=== PATIENT | male | born 1980 | race Caucasian/White ===

== ENCOUNTER 2017-12-01 16:59 | Emergency (ER) | payer BC ==
--- NOTE | 2017-12-01 17:26 | EDM.PDOC ---
ED HPI GENERAL MEDICAL PROBLEM - General Chief Complaint: Upper Extremity Injury/Pain Stated Complaint: BILATERAL WRIST PAIN Time Seen by Provider: 12/01/17 17:26 Source of Information: Reports: Patient History Limitations: Reports: No Limitations - History of Present Illness INITIAL COMMENTS - FREE TEXT/NARRATIVE: 37-year-old male, chronic wrist pain due to overuse in duty has been driving a lot over the past several days and has had some shooting pains in his wrists especially on the left side. He has taken as needed tramadol in the past and stopped in to the clinic to see if he could get some, they refused so he came to the emergency room. A [employer] search so she has not had any since April of last year. Onset: Unknown/Unsure Severity: Mild Associated Symptoms: Reports: Other (He has some chronic right knee discomfort as well) - Related Data Allergies Allergy/AdvReac Type Severity Reaction Status Date / Time No Known Allergies Allergy Verified 12/01/17 17:20 Review of Systems - Review of Systems Review Of Systems: See Below Constitutional: Denies: Fever Respiratory: Denies: Shortness of Breath Cardiovascular: Denies: Chest Pain GI/Abdominal: Denies: Abdominal Pain Skin: Denies: Rash Neurological: Reports: Other (A few shooting pains into the fingers but no paresthesias) ED EXAM, GENERAL - Physical Exam Exam: See Below Exam Limited By: No Limitations General Appearance: Alert, No Apparent Distress Respiratory/Chest: No Respiratory Distress Extremities: Other (I could not reproduce symptoms with the Tinel's or Phalen's sign on the wrists, but he did have a shot of pain into the small finger on the left wrist with grasp.) Neurological: Alert, Oriented, No Motor/Sensory Deficits Course - Vital Signs Last Recorded V/S: Last Vital Signs Temp 96.8 F 12/01/17 18:09 Pulse 92 12/01/17 18:09 Resp 16 12/01/17 18:09 BP 141/93 H 12/01/17 18:09 Pulse Ox 93 L 12/01/17 18:09 - Re-Assessments/Exams Free Text/Narrative Re-Assessment/Exam: 12/01/17 17:49 Patient was given 15 tramadol to use 1-2 every 4-6 hours for pain, and [facility] Departure - Departure Time of Disposition: 18:08 Disposition: Home, Self-Care 01 Condition: Good Clinical Impression: Neuropathy - Discharge Information Instructions: Neuropathic Pain Referrals: PCP,None [Primary Care Provider] - Forms: ED Department Discharge Care Plan Goals: Use tramadol as prescribed, along with anti-inflammatories such as ibuprofen. Recheck next week as planned.
== END 2017-12-01 18:11 | disposition home or self-care (01) ==
LOC: JP.ED 16:59
DX: G62.9 Polyneuropathy, unspecified (principal)
CPT/HCPCS: 99283

== ENCOUNTER 2018-02-05 18:31 | Emergency (ER) | payer BC, MEDICAID ==
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
--- NOTE | 2018-02-07 09:04 | CR ---
Wrist Comp Min 3V Bi CLINICAL HISTORY: Bilateral wrist pain FINDINGS: There is no acute fracture or dislocation within the right wrist. Articular surfaces are sm ooth. Impression: Negative
== END 2018-02-05 21:50 | disposition home or self-care (01) ==
LOC: JP.ED 18:31
DX: S02.2XXA Fracture of nasal bones, initial encounter for closed fracture (principal); M25.561 Pain in right knee; G56.03 Carpal tunnel syndrome, bilateral upper limbs; Z79.899 Other long term (current) drug therapy; E78.00 Pure hypercholesterolemia, unspecified; F17.210 Nicotine dependence, cigarettes, uncomplicated; W22.8XXA Striking against or struck by other objects, initial encounter
CPT/HCPCS: 70486; 731102650; 73110-50; 99284

== ENCOUNTER 2018-09-04 09:57 | Emergency (ER) | payer MEDICAID, OTHER ==
[2018-09-04] MEDS ORDERED: Acetaminophen 500 MG Tab PO ONE (10:57)
--- NOTE | 2018-09-04 11:00 | EDM.PDOC ---
ED HPI GENERAL MEDICAL PROBLEM - General Chief Complaint: General Stated Complaint: SHORTNESS OF BREATH/COUGH Time Seen by Provider: 09/04/18 10:45 Source of Information: Reports: Patient, RN History Limitations: Reports: No Limitations - History of Present Illness INITIAL COMMENTS - FREE TEXT/NARRATIVE: 38 yo male here with body aches, intermittent fever, dry cough and mild SOB since this past Wednesday. Did have an influenza test. Has not been seen in a clinic. Onset: Gradual Onset Date: 08/31/18 Duration: Day(s):, Constant Location: Reports: Generalized Quality: Reports: Ache Severity: Moderate Improves with: Reports: Medication, Rest Worsens with: Reports: Movement (activity) Context: Reports: Other (see HPI) Associated Symptoms: Reports: Cough, Fever/Chills, Malaise, Shortness of Breath (mild), Other (body aches). 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 Shoulder tear repaired October 28, 2016. Right knee arthroscopy, 2011 Neurological History: Reports: Concussion Psychiatric History: Reports: Other (See Below) Other Psychiatric History: anger management - Infectious Disease History Infectious Disease History: Reports: Chicken Pox - Past Surgical History Head Surgeries/Procedures: Reports: None HEENT Surgical History: Reports: LASIK Cardiovascular Surgical History: Reports: None GI Surgical History: Reports: Cholecystectomy Neurological Surgical History: Reports: None Musculoskeletal Surgical History: Reports: Arthroscopic Knee, Shoulder Surgery Dermatological Surgical History: Reports: None Social & Family History - Tobacco Use Smoking Status *Q: Current Every Day Smoker Years of Tobacco use: 2 Packs/Tins Daily: 3 Second Hand Smoke Exposure: No - Caffeine Use Caffeine Use: Reports: Coffee, Energy Drinks, Soda, Tea - Alcohol Use Days Per Week of Alcohol Use: 2 Number of Drinks Per Day: 2 Total Drinks Per Week: 4 - Recreational Drug Use Recreational Drug Use: No ED ROS GENERAL - Review of Systems Review Of Systems: See Below Constitutional: Reports: Fever, Chills, Malaise HEENT: Reports: No Symptoms Respiratory: Reports: Shortness of Breath (mild), Cough. Denies: Wheezing, Pleuritic Chest Pain, Sputum, Hemoptysis Cardiovascular: Reports: No Symptoms Endocrine: Reports: No Symptoms GI/Abdominal: Reports: No Symptoms : Reports: No Symptoms Musculoskeletal: Reports: No Symptoms Skin: Reports: No Symptoms Neurological: Reports: No Symptoms ED EXAM, GENERAL - Physical Exam Exam: See Below Exam Limited By: No Limitations General Appearance: Alert, WD/WN, No Apparent Distress Eye Exam: Bilateral Eye: Normal Inspection Ears: Normal External Exam, Normal Canal, Hearing Grossly Normal, Normal TMs Ear Exam: Bilateral Ear: Auricle Normal, Canal Normal, TM normal Nose: Normal Inspection, Normal Mucosa, No Blood Throat/Mouth: Normal Inspection, Normal Lips, Normal Oropharynx, Normal Voice, No Airway Compromise Head: Atraumatic, Normocephalic Neck: Normal Inspection, Supple, Non-Tender Respiratory/Chest: No Respiratory Distress, Lungs Clear, Normal Breath Sounds Cardiovascular: Regular Rate, Rhythm, No Edema GI/Abdominal: Normal Bowel Sounds, Soft, Non-Tender Back Exam: Normal Inspection. No: CVA Tenderness (R), CVA Tenderness (L) Extremities: Normal Inspection, Normal Range of Motion, Non-Tender, No Pedal Edema Neurological: Alert, Oriented, CN II-XII Intact, Normal Cognition, No Motor/ Sensory Deficits Psychiatric: Normal Affect, Normal Mood Skin Exam: Warm, Dry, Intact, Normal Color, No Rash Course - Vital Signs Last Recorded V/S: Last Vital Signs Temp 36.1 C 09/04/18 10:31 Pulse 94 09/04/18 10:31 Resp 16 09/04/18 10:31 BP 143/80 H 09/04/18 10:31 Pulse Ox 95 09/04/18 10:31 - Orders/Labs/Meds Labs: Laboratory Tests 09/04/18 Range/Units 11:33 WBC 6.7 (4.5-11.0) K/uL RBC 4.92 (4.30-5.90) M/uL Hgb 14.6 (12.0-15.0) g/dL Hct 44.0 (40.0-54.0) % MCV 89 (80-98) fL MCH 30 (27-31) pg MCHC 33 (32-36) % Plt Count 201 (150-400) K/uL Neut % (Auto) 58 (36-66) % Lymph % (Auto) 29 (24-44) % [place] % (Auto) 10 H (2-6) % Eos % (Auto) 3 (2-4) % Baso % (Auto) 1 (0-1) % Meds: Medications Discontinued Medications Generic Name Dose Route Start Last Admin Trade Name Freq PRN Reason Stop Dose Admin Acetaminophen 1,000 mg 09/04/18 10:57 09/04/18 11:06 Tylenol Extra Strength PO 09/04/18 10:58 1,000 mg ONETIME ONE Administration Departure - Departure Time of Disposition: 12:10 Disposition: Home, Self-Care 01 Condition: Fair Clinical Impression: Viral respiratory illness - Discharge Information *PRESCRIPTION DRUG MONITORING PROGRAM REVIEWED*: No *COPY OF PRESCRIPTION DRUG MONITORING REPORT IN PATIENT RAKAN: No Instructions: Viral Respiratory Infection Referrals: PCP,None [Primary Care Provider] - Forms: ED Department Discharge Additional Instructions: Ibuprofen and/or acetaminophen for pain or fever control. Rest. Drink lots of fluids. Isolation and frequent hand washing to limit spread. Robitussin per package instructions for cough. Recheck in the clinic as needed.
== END 2018-09-04 12:23 | disposition home or self-care (01) ==
LOC: JP.ED 09:57
DX: J98.9 Respiratory disorder, unspecified (principal); E78.00 Pure hypercholesterolemia, unspecified; F17.210 Nicotine dependence, cigarettes, uncomplicated; Z79.899 Other long term (current) drug therapy
CPT/HCPCS: 36415; 85025; 87804; 99285; A9270

== ENCOUNTER 2019-09-29 20:17 | Emergency (ER) | payer BC, OTHER ==
[2019-09-29] MEDS ORDERED: Dexamethasone 4 MG/ML SDV PO ONE (20:51)
--- NOTE | 2019-09-29 20:54 | EDM.PDOC ---
ED HPI GENERAL MEDICAL PROBLEM - General Chief Complaint: ENT Problem Stated Complaint: EAR ACHE SORE THROAT Time Seen by Provider: 09/29/19 20:47 Source of Information: Reports: Patient, RN Notes Reviewed History Limitations: Reports: No Limitations - History of Present Illness INITIAL COMMENTS - FREE TEXT/NARRATIVE: 39-year-old gentleman presents emergency department with a complaint of sore throat and ear pain, he states been sick for about 24 hours has had fever. No difficulty breathing no nausea or vomiting no chest pain Left Ear Pain Score (Numeric/FACES): 8 - Related Data Allergies Allergy/AdvReac Type Severity Reaction Status Date / Time No Known Allergies Allergy Verified 09/29/19 20:41 Home Meds: Home Meds FLUoxetine [PROzac] 20 mg PO DAILY 02/05/18 [History] Past Medical History Cardiovascular History: Reports: High Cholesterol Musculoskeletal History: Reports: Other (See Below) Other Musculoskeletal History: bilateral writst condition, stress fractures. Shoulder tear repaired October 28, 2016. Right knee arthroscopy, 2011 Neurological History: Reports: Concussion Psychiatric History: Reports: Other (See Below) Other Psychiatric History: anger management - Infectious Disease History Infectious Disease History: Reports: Chicken Pox - Past Surgical History Head Surgeries/Procedures: Reports: None HEENT Surgical History: Reports: LASIK Cardiovascular Surgical History: Reports: None GI Surgical History: Reports: Cholecystectomy Neurological Surgical History: Reports: None Musculoskeletal Surgical History: Reports: Arthroscopic Knee, Shoulder Surgery Dermatological Surgical History: Reports: None Social & Family History - Tobacco Use Smoking Status *Q: Never Smoker Second Hand Smoke Exposure: No - Caffeine Use Caffeine Use: Reports: Energy Drinks - Recreational Drug Use Recreational Drug Use: No ED ROS ENT - Review of Systems Review Of Systems: See Below Constitutional: Reports: Fever HEENT: Reports: Ear Pain, Throat Pain, Throat Swelling Respiratory: Reports: No Symptoms Cardiovascular: Reports: No Symptoms GI/Abdominal: Reports: No Symptoms : Reports: No Symptoms ED EXAM, ENT - Physical Exam Exam: See Below Exam Limited By: No Limitations General Appearance: Alert, WD/WN, No Apparent Distress Ears: Normal External Exam, Normal Canal, Hearing Grossly Normal, Normal TMs Nose: Normal Inspection, Normal Mucousa, No Blood Mouth/Throat: Normal Inspection, Normal Gums, Normal Lips, Normal Oropharynx, Normal Teeth Head: Atraumatic, Normocephalic Neck: Normal Inspection, Other (Arnulfo to palpation left anterior cervical chain) . No: Lymphadenopathy (R), Lymphadenopathy (L) Respiratory/Chest: No Respiratory Distress, Lungs Clear, Normal Breath Sounds, No Accessory Muscle Use, Chest Non-Tender Cardiovascular: Regular Rate, Rhythm, No Murmur GI/Abdominal: Soft, Non-Tender Course - Vital Signs Last Recorded V/S: Last Vital Signs Temp 100.7 F H 09/29/19 20:47 Pulse 107 H 09/29/19 20:47 Resp 16 09/29/19 20:47 BP 129/83 09/29/19 20:47 Pulse Ox 100 09/29/19 20:47 - Orders/Labs/Meds Orders: Active Orders 24 hr Category Date Time Status Penicillin G Benzathine [Bicillin L-A] Med 09/29/19 21:32 Once 1.2 millunits IM ONETIME ONE Meds: Medications Discontinued Medications Generic Name Dose Route Start Last Admin Trade Name Freq PRN Reason Stop Dose Admin Dexamethasone 10 mg 09/29/19 20:51 09/29/19 21:01 Dexamethasone PO 09/29/19 20:52 10 mg ONETIME ONE Administration Departure - Departure Time of Disposition: 21:35 Disposition: Home, Self-Care 01 Condition: Fair Clinical Impression: Streptococcal pharyngitis - Discharge Information Instructions: Sore Throat, Sbal-of-Twye Referrals: PCP,None [Primary Care Provider] - Forms: ED Department Discharge Additional Instructions: Symptomatic care Tylenol and Motrin as needed for pain control, please followup with your primary care provider in 3-5 days if not better, please call return to the emergency department with worsening of symptoms. Sepsis Event Note - Evaluation Sepsis Screening Result: No Definite Risk - Focused Exam Vital Signs: Vital Signs Temp Pulse Resp BP Pulse Ox 09/29/19 20:47 100.7 F H 107 H 16 129/83 100 09/29/19 20:37 100.7 F H 107 H 16 129/83 100 Date Exam was Performed: 09/29/19 Time Exam was Performed: 21:34 - My Orders Last 24 Hours: My Active Orders 09/29/19 21:32 Penicillin G Benzathine [Bicillin L-A] 1.2 millunits IM ONETIME ONE - Assessment/Plan Last 24 Hours: My Active Orders 09/29/19 21:32 Penicillin G Benzathine [Bicillin L-A] 1.2 millunits IM ONETIME ONE Plan: Assessment Acuity = acute Site and laterality = streptococcal pharyngitis Etiology = group A streptococcus Manifestations = none Location of injury = Home Lab values = positive for group A streptococcus Plan Elected to proceed with penicillin G 1,200,000 units IM x1 follow-up primary care 3 to 5 days if not better This note was dictated using [employer] voice recognition software please call with any questions on syntax or grammar.
[2019-09-29] MEDS ORDERED: Penicillin G Benzathine 1,200,000 Units/2 ML Syringe IM ONE (21:32)
== END 2019-09-29 22:12 | disposition home or self-care (01) ==
LOC: JP.ED 20:17
DX: J02.0 Streptococcal pharyngitis (principal); Z90.49 Acquired absence of other specified parts of digestive tract
CPT/HCPCS: 87880; 96372; 99283; J0561; J1100

== ENCOUNTER 2019-12-19 03:13 | Emergency (ER) | payer BC ==
[2019-12-19] MEDS ORDERED: Ketorolac 30 MG/ML SDV IVPUSH ONE (03:18)
[2019-12-19] MEDS ORDERED: Sodium Chloride 0.9% 10 ML Syringe FLUSH PRN (03:18)
[2019-12-19] MEDS ORDERED: Ondansetron 4 MG/2 ML SDV IVPUSH ONE (03:20)
--- NOTE | 2019-12-19 03:23 | EDM.PDOC ---
ED HPI GENERAL MEDICAL PROBLEM - General Stated Complaint: LEFT SIDE PAIN Time Seen by Provider: 12/19/19 03:17 Source of Information: Reports: Patient, RN Notes Reviewed History Limitations: Reports: No Limitations - History of Present Illness INITIAL COMMENTS - FREE TEXT/NARRATIVE: 39-year-old gentleman presents emergency department today complaint of sudden onset of left-sided flank pain came on suddenly this morning at 2:30 AM. He describes the pain is constant unrelenting, he has had some nausea and vomiting does have a history abdominal surgery of gallbladder no history of nephrolithiasis Left Lower Abdominal Pain Score (Numeric/FACES): 5 - Related Data Allergies Allergy/AdvReac Type Severity Reaction Status Date / Time No Known Allergies Allergy Verified 12/19/19 03:55 Home Meds: Home Meds FLUoxetine [PROzac] 20 mg PO DAILY 02/05/18 [History] Ibuprofen 600 mg PO DAILY PRN 12/19/19 [History] Past Medical History Cardiovascular History: Reports: High Cholesterol Musculoskeletal History: Reports: Other (See Below) Other Musculoskeletal History: bilateral writst condition, stress fractures. Shoulder tear repaired October 28, 2016. Right knee arthroscopy, 2011 Neurological History: Reports: Concussion Psychiatric History: Reports: Other (See Below) Other Psychiatric History: anger management - Infectious Disease History Infectious Disease History: Reports: Chicken Pox - Past Surgical History Head Surgeries/Procedures: Reports: None HEENT Surgical History: Reports: LASIK Cardiovascular Surgical History: Reports: None GI Surgical History: Reports: Cholecystectomy Neurological Surgical History: Reports: None Musculoskeletal Surgical History: Reports: Arthroscopic Knee, Shoulder Surgery Dermatological Surgical History: Reports: None Social & Family History - Caffeine Use Caffeine Use: Reports: Energy Drinks ED ROS GENERAL - Review of Systems Review Of Systems: See Below Constitutional: Reports: No Symptoms HEENT: Reports: No Symptoms Respiratory: Reports: No Symptoms Cardiovascular: Reports: No Symptoms GI/Abdominal: Reports: Abdominal Pain, Nausea, Vomiting : Reports: Flank Pain Musculoskeletal: Reports: No Symptoms Skin: Reports: No Symptoms ED EXAM, RENAL/ - Physical Exam Exam: See Below Exam Limited By: No Limitations General Appearance: Alert, WD/WN, No Apparent Distress Respiratory/Chest: No Respiratory Distress, Lungs Clear, Normal Breath Sounds, No Accessory Muscle Use, Chest Non-Tender Cardiovascular: Regular Rate, Rhythm, No Murmur GI/Abdominal: Soft, No Distention, No Abnormal Bruit, Tender (Left-sided flank) Course - Vital Signs Last Recorded V/S: Last Vital Signs Temp 97.3 F 12/19/19 03:34 Pulse 62 12/19/19 03:34 Resp 20 12/19/19 03:34 BP 128/83 12/19/19 03:34 Pulse Ox 97 12/19/19 03:34 - Orders/Labs/Meds Orders: Active Orders 24 hr Category Date Time Status Peripheral IV Care [RC] . DIRECTED Care 12/19/19 03:19 Active UA W/MICROSCOPIC [URIN] Urgent Lab 12/19/19 04:38 Ordered Lactated Ringers [Ringers, Lactated] 1,000 ml Med 12/19/19 03:30 Active IV ASDIRECTED Sodium Chloride 0.9% [Saline Flush] Med 12/19/19 03:18 Active 10 ml FLUSH ASDIRECTED PRN Peripheral IV Insertion Adult [OM.PC] Urgent Oth 12/19/19 03:18 Ordered Medication Orders Lactated Ringer's (Ringers, Lactated) 1,000 mls @ 999 mls/hr IV ASDIRECTED LETY Last Admin: 12/19/19 03:30 Dose: 999 mls/hr Sodium Chloride (Saline Flush) 10 ml FLUSH ASDIRECTED PRN PRN Reason: Keep Vein Open Last Admin: 12/19/19 03:43 Dose: 10 ml Labs: Laboratory Tests 12/19/19 12/19/19 12/19/19 Range/Units 03:26 03:26 03:26 WBC 11.2 H (4.5-11.0) K/uL RBC 5.10 (4.30-5.90) M/uL Hgb 15.2 H (12.0-15.0) g/dL Hct 43.7 (40.0-54.0) % MCV 86 (80-98) fL MCH 30 (27-31) pg MCHC 35 (32-36) % Plt Count 258 (150-400) K/uL Neut % (Auto) 37 (36-66) % Lymph % (Auto) 54 H (24-44) % Da[place]hin % (Auto) 7 H (2-6) % Eos % (Auto) 2 (2-4) % Baso % (Auto) 1 (0-1) % Sodium 142 (140-148) mmol/L Potassium 3.5 L (3.6-5.2) mmol/L Chloride 105 (100-108) mmol/L Carbon Dioxide 23 (21-32) mmol/L Anion Gap 17.5 H (5.0-14.0) mmol/L BUN 14 (7-18) mg/dL Creatinine 1.0 (0.8-1.3) mg/dL Est Cr Clr Drug Dosing TNP Estimated GFR (MDRD) > 60 (>60) Glucose 124 H (74-106) mg/dL Lactic Acid 1.0 (0.4-2.0) mmol/L Calcium 7.8 L (8.5-10.1) mg/dL Meds: Medications Generic Name Dose Route Start Last Admin Trade Name Freq PRN Reason Stop Dose Admin Lactated Ringer's 1,000 mls @ 999 mls/hr 12/19/19 03:30 12/19/19 03:30 Ringers, Lactated IV 999 mls/hr ASDIRECTED LETY Administration Sodium Chloride 10 ml 12/19/19 03:18 12/19/19 03:43 Saline Flush FLUSH 10 ml ASDIRECTED PRN Administration Keep Vein Open Discontinued Medications Generic Name Dose Route Start Last Admin Trade Name Freq PRN Reason Stop Dose Admin Fentanyl 50 mcg 12/19/19 04:01 12/19/19 04:07 Sublimaze IVPUSH 12/19/19 04:02 50 mcg ONETIME ONE Administration Fentanyl 100 mcg 12/19/19 04:34 12/19/19 04:57 Sublimaze IVPUSH 12/19/19 04:35 100 mcg ONETIME ONE Administration Ketorolac Tromethamine 30 mg 12/19/19 03:18 12/19/19 03:32 Toradol IVPUSH 12/19/19 03:19 30 mg ONETIME ONE Administration Ondansetron HCl 4 mg 12/19/19 03:20 12/19/19 03:32 Zofran IVPUSH 12/19/19 03:21 4 mg ONETIME ONE Administration Departure - Departure Time of Disposition: 05:02 Disposition: Home, Self-Care 01 Condition: Fair Clinical Impression: Nephrolithiasis - Discharge Information Instructions: Kidney Stones, [id number] Referrals: PCP,None [Primary Care Provider] - Additional Instructions: Use ketorolac for baseline pain control use hydrocodone for breakthrough pain, use Zofran as needed for nausea and vomiting symptoms continue to push fluids try and strain your urine and capture the stone this can be taken to your primary care provider for pathology to help discover the etiology of your stone , please followup with your primary care provider in 3-5 days if not better, please call return to the emergency department with worsening of symptoms. Sepsis Event Note - Focused Exam Vital Signs: Vital Signs Temp Pulse Resp BP Pulse Ox 12/19/19 03:34 97.3 F 62 20 128/83 97 Date Exam was Performed: 12/19/19 Time Exam was Performed: 05:00 - My Orders Last 24 Hours: My Active Orders 12/19/19 03:18 Sodium Chloride 0.9% [Saline Flush] 10 ml FLUSH ASDIRECTED PRN Peripheral IV Insertion Adult [OM.PC] Urgent 12/19/19 03:19 Peripheral IV Care [RC] . DIRECTED 12/19/19 03:30 Lactated Ringers [Ringers, Lactated] 1,000 ml IV ASDIRECTED 12/19/19 04:38 UA W/MICROSCOPIC [URIN] Urgent - Assessment/Plan Last 24 Hours: My Active Orders 12/19/19 03:18 Sodium Chloride 0.9% [Saline Flush] 10 ml FLUSH ASDIRECTED PRN Peripheral IV Insertion Adult [OM.PC] Urgent 12/19/19 03:19 Peripheral IV Care [RC] . DIRECTED 12/19/19 03:30 Lactated Ringers [Ringers, Lactated] 1,000 ml IV ASDIRECTED 12/19/19 04:38 UA W/MICROSCOPIC [URIN] Urgent Plan: Assessment Acuity = acute Site and laterality = 2 mm nephrolithiasis distal ureter left Etiology = unknown Manifestations = nausea and vomiting Location of injury = Home Lab values = CBC, BMP unremarkable lactic acid normal CT scan describes stone above Plan Did get some pain relief combination Toradol and fentanyl discharged home with Toradol 10 mg 1 tab p.o. 3 times daily as needed, hydrocodone 5/325 1 tab p.o. 3 times daily PRN total #20 Zofran 4 mg ODT 1 tab p.o. 3 times daily PRN total # 10 have him follow-up with his primary care in the next 3 to 5 days if no improvement strainer also provided This note was dictated using [employer] voice recognition software please call with any questions on syntax or grammar.
[2019-12-19] MEDS ORDERED: Lactated Ringers 1,000 ML IV SCH (03:30)
[2019-12-19] MEDS ORDERED: fentaNYL 100 MCG/2 ML SDV IVPUSH ONE ×2 (04:01→04:34)
--- NOTE | 2019-12-19 04:40 | CRLCT ---
INDICATION: Left-sided flank pain TECHNIQUE: CT abdomen and pelvis without contrast. COMPARISON: None FINDINGS: Lower chest: Unremarkable. Liver: Unremarkable. Spleen: Unremarkable. Pancreas: Unremarkable. Gallbladder and bile ducts: Cholecystectomy. Kidneys: 2 millimeter calculus distal left ureter with moderate left hydronephrosis. Adrenal glands: Unremarkable. GI tract: Unremarkable. Appendix is normal. Vascular structures: Unremarkable. Lymph nodes: Unremarkable. Miscellaneous: Unremarkable. No free air or significant free fluid. Pelvic Organs: Unremarkable. Bones: Unremarkable for age. IMPRESSION: 2 millimeter calculus distal left ureter with moderate left hydronephrosis. Dictated by Mauricio Haley MD @ 12/19/2019 4:38:18 AM Please note that all CT scans at this facility use dose modulation, iterative reconstruction, and/or weight-based dosing when appropriate to reduce radiation dose to as low as reasonably achievable. Dictated by: Mauricio Haley MD @ 12/19/2019 04:38:23 (Electronically Signed)
== END 2019-12-19 05:28 | disposition home or self-care (01) ==
LOC: JP.ED 03:13
DX: N13.2 Hydronephrosis with renal and ureteral calculous obstruction (principal); Z79.899 Other long term (current) drug therapy
CPT/HCPCS: 36415; 74176; 80048; 81001; 83605; 85025; 96361; 96374; 96375; 96376; 99284; J1885; J2405; J3010; J7120

== ENCOUNTER 2020-07-05 09:12 | Emergency (ER) | payer BC ==
[2020-07-05] MEDS ORDERED: Lidocaine 1% with EPINEPHrine 1:100,000 50 ML MDV INFILT SCH (09:45)
[2020-07-05] MEDS ORDERED: Bacitracin Oint 1 GM U/D Packet TOP ONE (11:08)
[2020-07-05] MEDS ORDERED: Diphtheria,Pertussis(Acell),Tetanus Vaccine 0.5 ML Syringe IM ONE (11:16)
--- NOTE | 2020-07-05 11:17 | EDM.PDOC ---
ED HPI GENERAL MEDICAL PROBLEM - General Chief Complaint: Upper Extremity Injury/Pain Stated Complaint: RH SLAMMED IN DOOR Time Seen by Provider: 07/05/20 09:34 Source of Information: Reports: Patient History Limitations: Reports: No Limitations - History of Present Illness INITIAL COMMENTS - FREE TEXT/NARRATIVE: Patient presents for evaluation of injury to fingers of the right hand after he accidentally shut his hand lowering the key of his work vehicle today approximately 30 minutes prior to arrival. He sustained a laceration to the middle finger and had some bleeding prior to arrival. He came here shortly after the injury. Pain in the tips of both fingers is quite severe. Bleeding is controlled at this time. Onset: Today, Sudden Duration: Minutes: (30) Location: Reports: Upper Extremity, Right (Third and fourth fingers.) Quality: Reports: Stabbing, Throbbing Severity: Severe Improves with: Reports: None Worsens with: Reports: Movement Context: Reports: Trauma Associated Symptoms: Reports: No Other Symptoms - Related Data Allergies Allergy/AdvReac Type Severity Reaction Status Date / Time No Known Allergies Allergy Verified 07/05/20 09:30 Home Meds: Home Meds FLUoxetine [PROzac] 20 mg PO DAILY 02/05/18 [History] Ibuprofen 600 mg PO DAILY PRN 12/19/19 [History] Past Medical History Cardiovascular History: Reports: High Cholesterol Musculoskeletal History: Reports: Other (See Below) Other Musculoskeletal History: bilateral writst condition, stress fractures. Shoulder tear repaired October 28, 2016. Right knee arthroscopy, 2011 Neurological History: Reports: Concussion Psychiatric History: Reports: Other (See Below) Other Psychiatric History: anger management - Infectious Disease History Infectious Disease History: Reports: Chicken Pox - Past Surgical History Head Surgeries/Procedures: Reports: None HEENT Surgical History: Reports: LASIK Cardiovascular Surgical History: Reports: None GI Surgical History: Reports: Cholecystectomy Neurological Surgical History: Reports: None Musculoskeletal Surgical History: Reports: Arthroscopic Knee, Shoulder Surgery Dermatological Surgical History: Reports: None Social & Family History - Tobacco Use Tobacco Use Status *Q: Never Tobacco User - Caffeine Use Caffeine Use: Reports: Energy Drinks Review of Systems - Review of Systems Review Of Systems: Comprehensive ROS is negative, except as noted in HPI. ED EXAM, GENERAL - Physical Exam Exam: See Below Free Text/Narrative:: This is an adult male examined in room 7. He does not like to move the fingers of the right hand. Exam Limited By: No Limitations General Appearance: Moderate Distress Respiratory/Chest: No Respiratory Distress Cardiovascular: Regular Rate, Rhythm Peripheral Pulses: 4+: Radial (L), Radial (R) Extremities: Normal Capillary Refill, Limited Range of Motion (The tips of the right third and fourth finger are swollen. There is a 1.5 cm laceration just distal to the DIP joint of the third finger. The nail of the fourth finger is almost completely evulsed but there is no bleeding at this time. They are extremely uncomfortable to palpation.) Neurological: Alert ED TRAUMA EXTREMITY PROCEDURES - Laceration/Wound Repair Right Distal Digit - 3rd (Middle) Lac/Wound Length In cm: 2 Appearance: Subcutaneous, Irregular Distal NVT: Neuro & Vascular Intact, No Tendon Injury Anesthetic Type: Digital Local Anesthesia - Lidocaine (Xylocaine): 1% with EPI Local Anesthetic Volume: Other (8 ml) Skin Prep: Chlorhexidine (Hibiciens) Saline Irrigation (cc's): 100 Exploration/Debridement/Repair: Wound Explored, No Foreign Material Found Closed With: Sutures Suture Size: 4-0 # of Sutures: 5 Suture Type: Nylon, Interrupted Drain Placement: No Sterile Dressing Applied: Nurse Tetanus Status Addressed: Yes Complications: No Course - Vital Signs Last Recorded V/S: Last Vital Signs Temp 36.3 C 07/05/20 09:37 Pulse 63 07/05/20 09:37 Resp 16 07/05/20 09:37 BP 116/77 07/05/20 09:37 Pulse Ox 98 07/05/20 09:37 - Orders/Labs/Meds Meds: Medications Discontinued Medications Generic Name Dose Route Start Last Admin Trade Name Gorge PRN Reason Stop Dose Admin Bacitracin 1 dose 07/05/20 11:08 07/05/20 11:24 Bacitracin Oint 1 Gm TOP 07/05/20 11:09 1 dose ONETIME ONE Administration Diphtheria/Tetanus/Acell Pertussis 0.5 ml 07/05/20 11:16 07/05/20 11:24 Boostrix IM 07/05/20 11:17 0.5 ml .ONCE ONE Administration Lidocaine/Epinephrine 10 ml 07/05/20 09:45 07/05/20 09:46 Xylocaine 1% With Epinephrine 1:100,000 INFILT 10 ml ASDIRECTED LETY Administration - Re-Assessments/Exams Free Text/Narrative Re-Assessment/Exam: 07/05/20 16:07 Due to his high level of pain, I performed third and fourth finger intrathecal blocks with 1% lidocaine with epinephrine. He became pain-free within 10 minutes. Imaging studies were completed which showed a nondisplaced fracture through the mid portion of the terminal phalanx of the fourth finger. After reviewing images, he was getting a little bit of sensation back in both fingers and additional lidocaine with epinephrine was administered to the base of each finger along with a small amount in the proximal portion of the finger laceration. See procedure section for laceration repair. The nail of the fourth finger was hanging on by a tiny piece of tissue and it was pulled free without incident. 07/05/20 16:12 I reviewed imaging findings again with the patient. A Band-Aid and bacitracin will be placed over the laceration area as well as over the exposed nail bed. He can replace those Band-Aids daily and use bacitracin. Sutures, 5 of them, can be removed in 10 days. A finger stack splint was applied. He should contact primary care for a recheck appointment regarding the nondisplaced finger fracture to occur in about 1 week. Prescriptions provided for cephalexin 500 mg, 21 capsules; tramadol 50 mg, 21 tablets; use both as directed. He received a Boostrix 3 component vaccine today as well. He should elevate the hand as much as possible and use cold packs to help with swelling. Should avoid painful and repetitive use of the fingers especially over the next 3 or 4 days. Exact return to work date is not known at this time. He is hoping to return to work in 8 days. Reasons to return to emergency department reviewed. Departure - Departure Time of Disposition: 11:12 Disposition: Home, Self-Care 01 Clinical Impression: Finger fracture, left Qualifiers: Encounter type: initial encounter Finger: ring finger Fracture type: closed Phalanx: distal Fracture alignment: nondisplaced Qualified Code(s): S62.665A - Nondisplaced fracture of distal phalanx of left ring finger, initial encounter for closed fracture Laceration of finger of left hand Qualifiers: Encounter type: initial encounter Finger: middle finger Damage to nail status: with damage Foreign body presence: without foreign body Qualified Code(s): S61.313A - Laceration without foreign body of left middle finger with damage to nail, initial encounter - Discharge Information Instructions: Finger Fracture, Adult, [id number] Referrals: PCP,None [Primary Care Provider] - Forms: ED Department Discharge Additional Instructions: Elevate hand is much as possible over the next 3 days. Keep a Band-Aid and bacitracin over the laceration site and the nailbed site. Change those every day and reapply bacitracin. Wear the finger splint on your ring finger to reduce movement at the joint. You should recheck with primary care within 1 week regarding the finger fracture. You can use ibuprofen 800 mg 3 times a day regularly for pain for the next week. Begin cephalexin antibiotic today and complete the entire course. For stronger pain, use tramadol 50 mg as ordered. You should avoid repetitive use of the fingers to avoid making the injuries worse over this next week. You were given a vaccine booster dose for tetanus, diphtheria, whooping cough at this visit. Return to ER if feeling worse in any way. Sepsis Event Note (ED) - Evaluation Sepsis Screening Result: No Definite Risk - Focused Exam Vital Signs: Vital Signs Temp Pulse Resp BP Pulse Ox 07/05/20 09:37 36.3 C 63 16 116/77 98
--- NOTE | 2020-07-05 11:43 | CR ---
Fingers Multiple Rt CLINICAL HISTORY: Injury FINDINGS: There is a incomplete transverse fracture through the fourth distal phalanx. There is minimal palmar angulation IMPRESSION: Fracture fourth distal phalanx
== END 2020-07-05 11:26 | disposition home or self-care (01) ==
LOC: JP.ED 09:12
DX: S62.664A Nondisplaced fracture of distal phalanx of right ring finger, initial encounter for closed fracture (principal); S61.312A Laceration without foreign body of right middle finger with damage to nail, initial encounter; Z23 Encounter for immunization; Z79.899 Other long term (current) drug therapy; W23.0XXA Caught, crushed, jammed, or pinched between moving objects, initial encounter; Y99.0 Civilian activity done for income or pay
CPT/HCPCS: 12001; 73140-26-RT; 73140-RT; 90471; 90715; 99283; 99283-25

== ENCOUNTER 2020-12-05 16:45 | Emergency (ER) | payer BC ==
[2020-12-05] MEDS ORDERED: Amoxicillin/Clavulanate K 875-125 MG Tab PO ONE (17:05)
[2020-12-05] MEDS ORDERED: Acetaminophen/oxyCODONE 325-5 MG Tab PO STA (17:06)
--- NOTE | 2020-12-05 17:11 | EDM.PDOC ---
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 No tx prior to arrival. Tetanus is UTD. Initial steps to find out about the dogs vaccination status are under way, but not yet known. 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 Shoulder tear repaired October 28, 2016. Right knee arthroscopy, 2011 Neurological History: Reports: Concussion Psychiatric History: Reports: Other (See Below) Other Psychiatric History: anger management - Infectious Disease History Infectious Disease History: Reports: Chicken Pox - Past Surgical History Head Surgeries/Procedures: Reports: None HEENT Surgical History: Reports: LASIK Cardiovascular Surgical History: Reports: None GI Surgical History: Reports: Cholecystectomy Neurological Surgical History: Reports: None Musculoskeletal Surgical History: Reports: Arthroscopic Knee, Shoulder Surgery Dermatological Surgical History: Reports: None Social & Family History - Tobacco Use Tobacco Use Status *Q: Never Tobacco User - Caffeine Use Caffeine Use: Reports: Energy Drinks ED ROS GENERAL - Review of Systems Review Of Systems: See Below Constitutional: Reports: No Symptoms Musculoskeletal: Reports: Leg Pain (R behind knee) Skin: Reports: Wound (puncture wounds from dog bite behind R knee) Neurological: Reports: No Symptoms ED EXAM, ANIMAL BITE - Physical Exam Exam: See Below Exam Limited By: No Limitations General Appearance: Alert, WD/WN, No Apparent Distress Extremities: Other (wound back of R knee) Neurological: Alert, Oriented, CN II-XII Intact, Normal Cognition, No Motor/Sensory Deficits Psychiatric: Normal Affect, Normal Mood Skin Exam: Normal Color, Warm/Dry, Other (puncture wound and dried blood behind R knee) Course - Vital Signs Last Recorded V/S: Last Vital Signs Temp 2.4 C L 12/05/20 17:05 Pulse 66 12/05/20 17:05 Resp 18 12/05/20 17:05 BP 124/78 12/05/20 17:05 Pulse Ox 90 L 12/05/20 17:05 - Orders/Labs/Meds Meds: Medications Discontinued Medications Generic Name Dose Route Start Last Admin Trade Name Freq PRN Reason Stop Dose Admin Amoxicillin/Clavulanate Potassium 1 tab 12/05/20 17:05 12/05/20 17:14 Amoxicillin/Clavulanate K 875-125 Mg Tab PO 12/05/20 17:06 1 tab ONETIME ONE Administration Lidocaine HCl 20 ml 12/05/20 17:24 12/05/20 17:26 Lidocaine 2% Viscous Solution 100 Ml Bottle PO 12/05/20 17:25 15 ml ONETIME ONE Administration Oxycodone/Acetaminophen 1 tab 12/05/20 17:06 12/05/20 17:14 Acetaminophen/Oxycodone 325-5 Mg Tab PO 12/05/20 17:07 1 tab ONETIME STA Administration - Re-Assessments/Exams Free Text/Narrative Re-Assessment/Exam: 12/05/20 17:38 Wound cleaned and irrigated per RN. No suturing needed. Departure - Departure Time of Disposition: 18:00 Disposition: Home, Self-Care 01 Condition: Fair Clinical Impression: Dog bite of right knee Qualifiers: Encounter type: initial encounter Qualified Code(s): S81.051A - Open bite, right knee, initial encounter; W54.0XXA - Bitten by dog, initial encounter - Discharge Information *PRESCRIPTION DRUG MONITORING PROGRAM REVIEWED*: No *COPY OF PRESCRIPTION DRUG MONITORING REPORT IN PATIENT RAKNA: No Instructions: Animal Bite, Adult, [id number] Referrals: PCP,None [Primary Care Provider] - Forms: ED Department Discharge Additional Instructions: Take Augmentin with food every 12 hrs until gone. Clean wound thoroughly with soap and water at least twice a day. Take acetaminophen up to 1000 mg every 6 hrs for pain relief. If you find out that the dog has not been vaccinated, then it needs to be quarantined until cleared by a vet. If the dog runs off and they can't find it you will need mandatory rabies vaccinations. All this needs to be sorted out no later than the end of the day tomorrow. Return for signs of infection or see your provider. Sepsis Event Note (ED) - Focused Exam Vital Signs: Vital Signs Temp Pulse Resp BP Pulse Ox 12/05/20 17:05 2.4 C L 66 18 124/78 90 L 12/05/20 17:02 2.4 C L 66 18 124/78 90 L
[2020-12-05] MEDS ORDERED: Acetaminophen/oxyCODONE 325-5 MG Tab ONE (17:13)
[2020-12-05] MEDS ORDERED: Amoxicillin/Clavulanate K 875-125 MG Tab ONE (17:14)
[2020-12-05] MEDS ORDERED: Lidocaine 2% Viscous Solution 100 ML Bottle PO ONE (17:24)
[2020-12-05] MEDS ORDERED: Lidocaine 2% Viscous Solution 15 ML Cup ONE (17:26)
[2020-12-05] MEDS ORDERED: Bacitracin Oint 1 GM U/D Packet TOP ONE (18:03)
[2020-12-05] MEDS ORDERED: Bacitracin Oint 1 GM U/D Packet ONE (18:04)
== END 2020-12-05 18:19 | disposition home or self-care (01) ==
LOC: JP.ED 16:45
DX: S81.051A Open bite, right knee, initial encounter (principal); W54.0XXA Bitten by dog, initial encounter
CPT/HCPCS: 99283; A9270-GY

== ENCOUNTER 2021-09-29 16:01 | Emergency (ER) | payer BC ==
[2021-09-29] MEDS ORDERED: Cyclobenzaprine 10 MG Tab PO ONE (16:48)
[2021-09-29] MEDS ORDERED: Ketorolac 30 MG/ML SDV IM ONE (16:48)
== END 2021-09-29 17:56 | disposition home or self-care (01) ==
LOC: JP.ED 16:01
DX: M54.6 Pain in thoracic spine (principal)
CPT/HCPCS: 96372; 99282; 99283; A9270-GY; J1885

== ENCOUNTER 2024-01-12 18:37 | Emergency (ER) | payer BC ==
[2024-01-12] MEDS: Lidocaine 1% 10 ML MDV INJECT ONE (19:23)
[2024-01-12] MEDS: Bacitracin Oint 1 GM U/D Packet TOP ONE (19:38)
== END 2024-01-12 20:00 | disposition home or self-care (01) ==
LOC: JP.ED 18:37
DX: S60.450A Superficial foreign body of right index finger, initial encounter (principal); E78.00 Pure hypercholesterolemia, unspecified; Z90.49 Acquired absence of other specified parts of digestive tract; Z79.899 Other long term (current) drug therapy; Z79.2 Long term (current) use of antibiotics; W45.8XXA Other foreign body or object entering through skin, initial encounter
CPT/HCPCS: 64450; 99283; 99283-25

== ENCOUNTER 2024-01-27 21:56 | Emergency (ER) | payer BC ==
[2024-01-27] MEDS: Lidocaine 1% with EPINEPHrine 1:100,000 50 ML MDV SUBCUT STA (23:02)
[2024-01-27] MEDS: Bacitracin Oint 1 GM U/D Packet TOP ONE (23:02)
[2024-01-27] MEDS: fentaNYL 100 MCG/2 ML SDV IM ONE (23:45)
== END 2024-01-28 00:12 | disposition home or self-care (01) ==
LOC: JP.ED 21:56
DX: S41.112A Laceration without foreign body of left upper arm, initial encounter (principal); S50.02XA Contusion of left elbow, initial encounter; E78.00 Pure hypercholesterolemia, unspecified; Z90.49 Acquired absence of other specified parts of digestive tract; Z79.899 Other long term (current) drug therapy; Z79.2 Long term (current) use of antibiotics; W01.0XXA Fall on same level from slipping, tripping and stumbling without subsequent striking against object, initial encounter
CPT/HCPCS: 12002; 73080; 96372; 99283; J3010

== ENCOUNTER 2025-05-25 07:29 | Emergency (ER) | payer BC, OTHER ==
[2025-05-25] MEDS: Ketorolac 30 MG/ML SDV IM ONE (08:35)
[2025-05-25 08:39] LABS: BASOPHILS ABSOLUTE AUTO 0.06 K/uL (0.00-0.10); BASOPHILS PERCENT AUTO 0.7 % (0.1-1.3); EOSINOPHILS ABSOLUTE AUTO 0.14 K/uL (0.00-0.40); EOSINOPHILS PERCENT AUTO 1.7 % (0.0-5.4); IMMATURE GRAN ABSOLUTE AUTO 0.03 K/uL (0.00-0.23); IMMATURE GRAN PERCENT AUTO 0.4 % (0.0-0.7); LYMPHOCYTES ABSOLUTE AUTO 2.06 K/uL (0.8-3.3); LYMPHOCYTES PERCENT AUTO 25.0 % (11.4-47.7); MONOCYTES ABSOLUTE AUTO 0.49 K/uL (0.20-0.90); MONOCYTES PERCENT AUTO 5.9 % (3.3-12.6); NEUTROPHILS ABSOLUTE AUTO 5.47 K/uL (1.0-7.6); NEUTROPHILS PERCENT AUTO 66.3 % (40.0-78.1); PLATELET COUNT,PLT 198 K/uL (130-375); RED BLOOD CELL COUNT 4.65 M/uL (4.14-5.76); WHITE BLOOD CELL COUNT,WBC 8.3 K/uL (3.2-11.0)
[2025-05-25 09:05] LABS: BLOOD UREA NITROGEN,BUN 16.0 mg/dL (7-18); CARBON DIOXIDE,CO2 28.0 mmol/L (21-32); CHLORIDE,CL 106.0 mmol/L (100-108); CREATININE 1.0 mg/dL (0.8-1.3); EST CRCL DRUG DOSING (CG) 107.64 mL/min; ESTIMATED GFR 96.0 mL/min (>60); GLUCOSE RANDOM 132.0 mg/dL (74-106); POTASSIUM,K 3.4 mmol/L (3.6-5.2); SODIUM,NA 141.0 mmol/L (140-148)
[2025-05-25] MEDS ORDERED: Naloxone 0.4 MG/ML SDV IVPUSH PRN (09:22)
== END 2025-05-25 10:12 | disposition home or self-care (01) ==
LOC: JP.ED 07:29
DX: M62.830 Muscle spasm of back (principal); E78.00 Pure hypercholesterolemia, unspecified; Z79.899 Other long term (current) drug therapy; Z90.49 Acquired absence of other specified parts of digestive tract
CPT/HCPCS: 36415; 71045; 80048; 84484; 85025; 85379; 93005; 96372; 99284; A9270; J1171; J1885